=== PATIENT | male | born 1985 | race Caucasian/White ===

== ENCOUNTER 2018-03-23 20:16 | Emergency (ER) | payer OTHER ==
[~2018-03-23] VITALS: Ht 175.3 cm; Wt 79.9 kg
[2018-03-23 20:59] LABS: HEMOGLOBIN 13.6 G/DL (12.5-16.6); MCH 31.2 PG (29.0-34.0); MCHC 34.9 G/DL (30.0-36.0); MCV 89.4 FL (86-99); RBC DIS.WIDTH-CV 12.2 % (11.8-14.6); RBC DIS.WIDTH-SD 40.1 % (39-53); RED BLOOD COUNT 4.36 M/uL (4.00-5.50)
[2018-03-23 21:11] LABS: CHLORIDE 104 mEq/L (99-109); POTASSIUM 4.4 mEq/L (3.7-5.4); SODIUM 142 mEq/L (136-147)
[2018-03-23 21:13] LABS: GLUCOSE 107 mg/dL (70-99)
[2018-03-23 21:17] LABS: CREATININE 1.1 mg/dL (0.6-1.3); GFR ESTIMATE (CALCULATED) > 59 mL/min/ (58.99-99999)
[2018-03-23 21:18] LABS: UREA NITROGEN (BUN) 12 mg/dL (9-23)
[2018-03-23 21:26] LABS: TROP-I INTERPRETATION NEGATIVE; TROPONIN-I < 0.01 ng/mL (0.0-0.30)
[2018-03-23 21:50] LABS: PLAT.SUFFICIENCY ADEQUATE; PLATELET COUNT 211 K/uL (156-360)
[2018-03-23 23:08] LABS: D-DIMER ELISA < 150.00 ng/mLDDU (<230)
[2018-03-23 23:33] LABS: TROP-I INTERPRETATION NEGATIVE; TROPONIN-I < 0.01 ng/mL (0.0-0.30)
[2018-03-24 00:16] VITALS: BP 121/70
== END 2018-03-24 00:19 | disposition home or self-care (01) ==
LOC: EME 20:16
PROVIDERS: Emergency Medicine
DX: R07.9 Chest pain, unspecified (principal); I10 Essential (primary) hypertension; I34.1 Nonrheumatic mitral (valve) prolapse
CPT/HCPCS: 71046; 80048; 84484; 85027; 85379; 93005; 99281; 99285